=== PATIENT | female | born 1950 | race African-American/Black ===

== ENCOUNTER 2017-08-28 21:55 | Emergency (ER) | payer MEDICARE ==
[~2017-08-28] VITALS: Ht 165.1 cm; Wt 115.7 kg
[2017-08-28 22:00] VITALS: BP 167/91
[2017-08-28] MEDS ORDERED: LOSARTAN-HCTZ1 EAC1 ORAL (22:00)
[2017-08-28] MEDS ORDERED: CHLORTHALIDONE50 MG ORAL (22:00)
[2017-08-28] MEDS ORDERED: PRAVASTATIN SOD80 M1 ORAL (22:00)
[2017-08-28] MEDS ORDERED: LANTUS SOL100 UNIT/1 SUBQ (22:00)
--- NOTE | 2017-08-28 22:23 | Emergency Room Report ---
History of Present Illness General Chief Complaint: Abdominal Pain Source: Patient Present Illness HPI 67-year-old female history of hysterectomy, presenting with nausea vomiting and abdominal pain since 11 AM today. More than 10 episodes of nonbilious nonbloody vomiting, as well as to 3 episodes of watery diarrhea. Diffuse abdominal pain, crampy, intermittent. No fever or chills Allergies: Coded Allergies: No Known Allergies (Unverified , 08/28/17) Patient History Past Medical History: see triage record Past Surgical History: none Pertinent Family History: none Reviewed Nursing Documentation: PMH: Agreed, PSxH: Agreed Nursing Documentation-PMH Hx Hypertension: Yes Hx Diabetes: Yes Review of Systems All Other Systems: negative except mentioned in HPI Physical Exam Vital Signs Date Time Temp Pulse Resp B/P (MAP) Pulse Ox O2 Delivery O2 Flow Rate FiO2 08/28/17 21:54 98.4 94 23 167/91 100 Room Air Sp02 EP Interpretation: reviewed, normal General Appearance: alert, GCS 15, non-toxic, moderate distress Head: normocephalic, atraumatic Eyes: bilateral eye normal inspection, bilateral eye PERRL, bilateral eye EOMI ENT: normal ENT inspection, normal pharynx, normal voice, moist mucus membranes Neck: normal inspection, full range of motion, supple Respiratory: normal inspection, lungs clear, normal breath sounds, no respiratory distress, no retraction, no wheezing, speaking full sentences, chest symmetrical Cardiovascular #1: normal inspection, regular rate, rhythm, no edema, normal capillary refill Cardiovascular #2: 2+ radial (R), 2+ radial (L) Gastrointestinal: soft, non-distended, no guarding, other - Generalized abdominal pain, no rebound no guarding Genitourinary: no CVA tenderness Musculoskeletal: normal inspection, back normal, normal range of motion, non- tender Neurologic: normal inspection, alert, oriented x3, responsive, motor strength/ tone normal, sensory intact, normal gait, speech normal Psychiatric: normal inspection, judgement/insight normal, memory normal Skin: normal inspection, normal color, no rash, warm/dry, well hydrated, normal turgor Medical Decision Making Diagnostic Impression: Primary Impression: Small bowel obstruction Additional Impression: Intractable abdominal pain ER Course 67-year-old female with nausea vomiting and abdominal pain Differential Diagnosis: Gastritis, gastroenteritis, cholecystitis, appendicitis, diverticulitis, SBO, mesenteric ischemia, cardiac, UTI/pyelo Plan: Basic labs, ua, ekg pain control, IVF CT abdopelvis / CTA abdo pelvis ER course: Patient has remained HD stable during ED stay. Required multiple rounds of pain control No further nausea and vomiting after Zofran CT showing small bowel obstruction NG tube placed. Disposition: [facility] purposes Discussed case with receiving doctor, Dr Sharif, who has accepted patient for admission Please note that this Emergency Department Report was dictated using [employer] clerk technology software, occasionally this can lead to erroneous entry secondary to interpretation by the dictation equipment Laboratory Tests Test 08/28/17 22:10 White Blood Count 15.5 K/UL (4.8-10.8) H Red Blood Count 3.79 M/UL (4.20-5.40) L Hemoglobin 11.2 G/DL (12.0-16.0) L Hematocrit 36.3 % (37.0-47.0) L Mean Corpuscular Volume 96 FL (80-99) Mean Corpuscular Hemoglobin 29.6 PG (27.0-31.0) Mean Corpuscular Hemoglobin Concent 30.8 G/DL (32.0-36.0) L Red Cell Distribution Width 12.4 % (11.6-14.8) Platelet Count 301 K/UL (150-450) Mean Platelet Volume 7.6 FL (6.5-10.1) Neutrophils (%) (Auto) 83.9 % (45.0-75.0) H Lymphocytes (%) (Auto) 13.1 % (20.0-45.0) L Monocytes (%) (Auto) 2.1 % (1.0-10.0) Eosinophils (%) (Auto) 0.3 % (0.0-3.0) Basophils (%) (Auto) 0.5 % (0.0-2.0) Sodium Level 145 mEQ/L (135-145) Potassium Level 4.4 mEQ/L (3.4-4.9) Chloride Level 101 mEQ/L (98-107) Carbon Dioxide Level 22 mEQ/L (20-30) Anion Gap 22 (5-15) H Blood Urea Nitrogen 37 mg/dL (7-23) H Creatinine 1.8 mg/dL (0.5-0.9) H Estimate Glomerular Filtration Rate 33.8 mL/min (>60) Glucose Level 260 mg/dL (74-106) H Calcium Level 9.8 mg/dL (8.6-10.2) Total Bilirubin 0.4 mg/dL (0.0-1.2) Aspartate Amino Transferase (AST) 12 U/L (5-40) Alanine Aminotransferase (ALT) 7 U/L (3-33) Alkaline Phosphatase 83 U/L (35-104) Troponin I 0.000 ng/mL (0.000-0.056) Total Protein 9.9 g/dL (6.6-8.7) H Albumin 4.1 g/dL (3.5-5.2) Globulin 5.8 g/dL Albumin/Globulin Ratio 0.7 (1.0-2.7) L Lipase 63 U/L (< 60) H EKG Diagnostic Results Rate: normal Rhythm: NSR ST Segments: other - Q waves, aVL ASA given to the pt in ED: No Rhythm Strip Diag. Results EP Interpretation: yes Rate: 81 Rhythm: NSR, no PVC's, no ectopy CT/MRI/US Diagnostic Results CT/MRI/US Diagnostic Results : Imaging Test Ordered: CT abdo pelvis with oral contrast only Impression CT ABDOMEN & PELVIS Without Contrast: IMPRESSION: Distal small bowel obstruction with dilated and contrast-filled bowel loops measuring up to 2.7 cm. Fecal-like material is present in the distal dilated segment and there is abrupt focal transition in the right hemipelvis where small bowel loops are clustered subjacent to the anterior abdominal wall. More distally, small bowel loops are completely decompressed. Relative lack of proximal small bowel dilation may reflect acuity, partiality, or distal nature of the obstruction. The length of the dilated segment is too long for a conventional closed-loop obstruction. Surgical consultation recommended. Interloop mesenteric edema/free fluid in the right lower quadrant without bowel wall thickening, pneumatosis, free air, or portal venous gas. Appendix not visualized. INCIDENTAL FINDINGS: Small sliding hiatus hernia. Mild hepatomegaly versus Judy's lobe. Cholelithiasis without biliary ductal dilatation. Nodular thickening of the adrenal glands measuring up to 11 mm on the left. Nonspecific low-density right renal cortical lesion may represent a small cyst or angiomyolipoma. Atherosclerosis without abdominal aortic aneurysm. Diverticulosis. Status post hysterectomy. Thoracolumbar spondylosis, grade 1 anterolisthesis of L4 on L5, and diffusely heterogeneous osseous marrow which may reflect renal osteodystrophy. Degenerative change of the bilateral hips and sacroiliac joints. Electronically signed by Aaron Curiel MD Last Vital Signs Date Time Temp Pulse Resp B/P (MAP) Pulse Ox O2 Delivery O2 Flow Rate FiO2 08/28/17 21:54 98.4 94 23 167/91 100 Room Air Disposition: XFER [facility] Condition: Serious Aaron Curiel M.D. Aug 28, 2017 22:23
[2017-08-28 22:33] LABS: BASOPHILS % (AUTO) 0.5 % (0.0-2.0); EOSINOPHILS % (AUTO) 0.3 % (0.0-3.0); LYMPHOCYTES % (AUTO) 13.1 % (20.0-45.0); MEAN CORPUSCULAR HEMOGLOBIN 29.6 PG (27.0-31.0); MEAN CORPUSCULAR HGB CONC 30.8 G/DL (32.0-36.0); MEAN CORPUSCULAR VOLUME 96 FL (80-99); MEAN PLATELET VOLUME 7.6 FL (6.5-10.1); MONOCYTES % (AUTO) 2.1 % (1.0-10.0); NEUTROPHILS % (AUTO) 83.9 % (45.0-75.0); PLATELET COUNT 301 K/UL (150-450); RED BLOOD COUNT 3.79 M/UL (4.20-5.40); RED CELL DISTRIBUTION WIDTH 12.4 % (11.6-14.8); WHITE BLOOD COUNT 15.5 K/UL (4.8-10.8)
[2017-08-28 22:59] LABS: ALBUMIN/GLOBULIN RATIO 0.7 (1.0-2.7); CALCIUM 9.8 mg/dL (8.6-10.2); CREATININE 1.8 mg/dL (0.5-0.9); GLOMERULAR FILTRATION RATE 33.8 mL/min (>60); POTASSIUM 4.4 mEQ/L (3.4-4.9); TOTAL PROTEIN 9.9 g/dL (6.6-8.7)
[2017-08-28] MEDS ORDERED: Morphine Sulfate 4mg/ml Inj IVP ONE (23:00)
[2017-08-29] VITALS: BP 192/85
[2017-08-29 03:01] VITALS: BP 205/71
[2017-08-29] MEDS ORDERED: Morphine Sulfate 4mg/ml Inj IVP ONE (03:30)
[2017-08-29 04:50] VITALS: BP 174/74
[2017-08-29 05:00] VITALS: BP 174/74
--- NOTE | 2017-08-29 08:59 | Diagnostic Imaging Report ---
Indication: Abdominal pain Technique: CT scan of the abdomen and pelvis utilizing automated exposure control without oral contrast. Axial, sagittal and coronal images were obtained. CT dose: Total DLP 1698 mGycm; CTDI vol 32.9 mGy Comparison: None Findings: Evaluation of the solid organs is limited without intravenous contrast material. There is minimal atelectasis in the lung bases. There are dilated distal small bowel loops measuring up to 2.7 cm. Fecal-like material is present in distal dilated small bowel with focal transition of the right anterior hemipelvis subjacent to the anterior abdominal wall. Rectus diastases is noted. Postsurgical changes of the anterior abdominal wall are seen. There is interloop edema and free fluid in the right lower quadrant. No pneumatosis or free intraperitoneal air are identified. There is colonic diverticulosis without diverticulitis. Appendix is not clearly identified. The uterus is absent. Bladder is grossly unremarkable. There is a tiny hiatal hernia. Gallstones are present. There is slight nodular thickening of the left adrenal gland measuring up to 1.1 cm. There is a 1.8 cm lesion of the right posterior kidney with fat density compatible with an angiomyolipoma. There is no hydronephrosis. Atherosclerotic changes are seen. The abdominal aorta is normal in caliber. Degenerative changes of the spine and hips are present. There is minimal anterolisthesis of L4 on L5. Impression: Dilated small bowel loops measuring up to 2.7 cm. Fecal-like material within a distal dilated segment of small bowel with apparent focal transition in the right anterior hemipelvis series 3 image 104. Intraloop fluid and edema but no obvious pneumatosis or free air. Findings are suggestive of small bowel obstruction. Clinical correlation recommended. Cholelithiasis. Absent uterus. Colonic diverticulosis without diverticulitis. Atherosclerotic changes. Postsurgical changes of the anterior abdominal wall. Approximately 1.8 cm lesion of the right kidney with fat density suggestive of angiomyolipoma. Nodular thickening of the left adrenal gland. Clinical correlation recommended. Other findings as above. The above report is concordant with preliminary reading by [employer]. The CT scanner at [facility], [place] is accredited by the [employer] and the scans are performed using protocols designed to limit radiation exposure to as low as reasonably achievable to attain images of sufficient resolution adequate for diagnostic evaluation.
--- NOTE | 2017-09-02 23:07 | Cardiology Report ---
APPROVED REPORT EKG Measurement Heart [id number] Normal sinus rhythm with sinus arrhythmia Nonspecific ST and T wave abnormality Abnormal ECG
== END 2017-08-29 04:55 | disposition short-term general hospital (02) ==
LOC: EDBD 21:55 → EMR 22:13
DX: K56.609 Unspecified intestinal obstruction, unspecified as to partial versus complete obstruction (principal); R11.2 Nausea with vomiting, unspecified; I10 Essential (primary) hypertension; E11.9 Type 2 diabetes mellitus without complications
CPT/HCPCS: 36415; 74176; 80053; 83690; 84484; 85025; 93005; 99285; J2270; J2405